=== PATIENT | male | born 1945 | race Caucasian/White ===

== ENCOUNTER → 2017-02-06 | Outpatient (CLI) | payer OTHER, MEDICARE | LOC: FIMAGING 09:54 | PROVIDERS: ATTEND Family Medicine Geriatric Medicine | DX: K80.20 Calculus of gallbladder without cholecystitis without obstruction (principal); K76.0 Fatty (change of) liver, not elsewhere classified; N28.1 Cyst of kidney, acquired ==

== ENCOUNTER → 2017-04-08 | Outpatient (CLI) | payer OTHER, MEDICARE ==
[~2017-04-08] MED LIST: IOPAMIDOL (ISOVUE-300) 100 ML BTL ONE
== END ==
LOC: FIMAGING 10:46
PROVIDERS: ATTEND Physician Assistant
DX: K76.0 Fatty (change of) liver, not elsewhere classified (principal); N28.1 Cyst of kidney, acquired; K57.33 Diverticulitis of large intestine without perforation or abscess with bleeding
CPT/HCPCS: 74177; Q9967

== ENCOUNTER 2017-04-11 14:03 | Emergency (ER) | payer OTHER, MEDICARE ==
[2017-04-11 14:13] VITALS: RESP 18
--- NOTE | 2017-04-11 15:08 | EDPHY ---
H & P Time Seen by Provider: 04/11/17 14:59 HPI/ROS: CHIEF COMPLAINT: Myalgias HISTORY OF PRESENT ILLNESS: This patient is a 71-year-old male who presents to the Emergency Department complaining of diffuse myalgias increasing in severity over the past two days. He was recently started on Flagyl and Bactrim for diverticulitis; he finished day 9 of these medications yesterday and decided to stop these concerned that he may be having a reaction to the medications. Upon arrival, he describes his pain as similar to the muscle aching side effects of his statin medications. His pain as most severe to his buttocks and back, exacerbated when attempting to sit down. He also complains of a non-pruritic rash to his upper back and arms. He states that his abdominal pain has subsided. Denies fever or chills; he has no additional complaints. REVIEW OF SYSTEMS: Constitutional: +diffuse myalgias, no fever, no chills Eyes: No visual changes ENT: No sore throat Respiratory: No cough, no shortness of breath Cardiac: No chest pain Gastrointestinal: No nausea, no vomiting Genitourinary: No hematuria, no dysuria Musculoskeletal: No leg pain or swelling Skin: +hives to back and arms Neurological: No headache, no numbness, no weakness Psychiatric: No depression Past Medical/Surgical History: Diverticulitis Social History: Former smoker Smoking Status: Former smoker Physical Exam: General Appearance: Alert, pleasant Eyes: Pupils equal and round, no conjunctival pallor or injection ENT, Mouth: Mucous membranes moist Neck: Normal inspection Respiratory: Lungs are clear to auscultation Cardiovascular: Regular rate and rhythm Gastrointestinal: Abdomen is soft with very mild LLQ tenderness Neurological: A&O, nonfocal, normal gait Skin: Warm and dry, hives to back and bilaterally to both arms Extremities: Nontender, no pedal edema Psychiatric: Mood and affect normal Constitutional: Initial Vital Signs Temperature (C) 36.3 C 04/11/17 14:09 Heart Rate 93 04/11/17 14:09 Respiratory Rate 18 04/11/17 14:09 Blood Pressure 124/90 H 04/11/17 14:09 O2 Sat (%) 97 04/11/17 14:09 O2 Delivery Mode Room Air Allergies/Adverse Reactions: ciprofloxacin [From Cipro] Allergy (Verified 04/11/17 14:14) Penicillins Adverse Reaction (Severe, Verified 10/09/15 09:17) Home Medications: Medication Instructions Recorded Lisinopril 10/09/15 Metformin HCl 10/09/15 Baclofen 04/11/17 Medical Decision Making ED Course/Re-evaluation: This 71-year-old male presents with complaints of diffuse myalgias and a non- pruritic rash to his upper back and bilaterally to his arms presenting two days prior to arrival, on the 7th day of his course of Bactrim and Flagyl prescribed to treat his diverticulitis. He last took these medications yesterday. It is likely he is experiencing an adverse reaction to Bactrim. Will proceed with labs ; r/o rhabdo, given myalgias. 600mg PO Tylenol administered Labs obtained and are largely within normal limits. Creatinine kinase within normal range at 81. CT scan on 04/08 revealed very mild diverticulitis. Based on this, near resolution of sx, and his multiple allergies, I will stop antibiotics altogether at this time. I discussed lab results with the patient. I recommended to him that he treat his urticaria with Benadryl at night and Claritin during the day. He is comfortable with the decision not to begin an additional course of antibiotics. He has completed 9 days of abx. He understands that he should not take any more Flagyl or Bactrim and that his symptoms are likely due to an allergic reaction to the medication. He expresses agreement to this and will be discharged home in good condition. Will f/u PCP in 24-48 hours. Differential Diagnosis: Differential diagnosis for the patient's myalgias and rash includes but is not limited to: allergic reaction to medication, medication side effects, or rhabdomyolysis. - Data Points Laboratory Results: Laboratory Results 04/11/17 15:18 04/11/17 15:18 Medications Given: Discontinued Medications Acetaminophen (Tylenol) 650 mg PO EDNOW ONE Stop: 04/11/17 15:11 Last Admin: 04/11/17 15:36 Dose: 650 mg Departure - Departure Disposition: Home, Routine, Self-Care Clinical Impression: Myalgia, Urticaria Adverse reaction to antibiotic Qualifiers: Encounter type: initial encounter Qualified Code(s): T36.95XA - Adverse effect of unspecified systemic antibiotic, initial encounter Condition: Good Instructions: Urticaria (ED), Musculoskeletal Pain (ED) Additional Instructions: 1. Stop taking Bactrim and Flagyl immediately. 2. Take Benadryl as directed at night and Claritin as directed during the day until your rash subsides. 3. Take 600mg Tylenol every 4-6 hours to treat your muscle aches and muscle cramping. 4. Follow-up with your primary care provider for reevaluation if your symptoms do not improve in 2-3 days. 5. Return to the Emergency Department with worsening pain, worsening rash, difficulty breathing or swallowing, or for other serious concerns. Referrals: Bertha Johnson MD [Primary Care Provider] - 1-2 days without fail Report Scribed for: Mariela Wilder Report Scribed by: Melinda Graham Date of Report: 04/11/17 Time of Report: 15:01 Physician Review and Approval Statement: 04/11/17 15:01 Portions of this note were transcribed by a medical office technologist. I personally performed a history, physical exam, medical decision making, and confirmed accuracy of information the transcribed note.
[2017-04-11] MEDS ORDERED: ACETAMINOPHEN 325 MG TAB PO ONE (15:10)
[2017-04-11 15:34] LABS: % IMMATURE GRANULYOCYTES 0.2 % (0.0-1.1); ABSOLUTE IMMATURE GRANULOCYTES 0.01 10^3/uL (0.00-0.10); ADD DIFF? NO; ADD MORPH? NO; ADD SCAN? YES; FRAGMENT RBC FLAG 0 (0-99); HEMATOCRIT 48.6 % (40.0-51.0); HEMOGLOBIN 16.5 g/dL (13.7-17.5); LEFT SHIFT FLG 0 (0-99); LIPEMIA HEMOLYSIS FLAG 90 (0-99); MEAN CELL HEMOGLOBIN 27.4 pg (27.9-34.1); MEAN CELL VOLUME 80.7 fL (81.5-99.8); MEAN PLATELET VOLUME 10.1 fL (8.7-11.7); PLATELET CLUMPS FLAG 0 (0-99); PLATELET COUNT 336 10^3/uL (150-400); RED BLOOD CELL COUNT 6.02 10^6/uL (4.40-6.38); RED CELL DISTRIBUTION WIDTH 13.4 % (11.5-15.2)
[2017-04-11] MEDS ORDERED: ACETAMINOPHEN 325 MG TAB ONE (15:34)
[2017-04-11 15:37] LABS: ATYPICAL LYMPHOCYTE FLAG 100 (0-99)
[2017-04-11 15:44] LABS: ANION GAP 12 mEq/L (8-16); CALCIUM 9.9 mg/dL (8.5-10.4); CARBON DIOXIDE 23 mEq/l (22-31); CHLORIDE 102 mEq/L (97-110); CREATININE 0.9 mg/dL (0.7-1.3); GLOMERULAR FILTRATION RATE > 60; GLUCOSE 148 mg/dL (70-100); POTASSIUM 4.9 mEq/L (3.5-5.2); SODIUM 137 mEq/L (134-144)
[2017-04-11 15:54] LABS: SCAN POSITIVE
[2017-04-11 15:59] LABS: PLATELET ESTIMATE ADEQUATE (ADEQ)
[2017-04-11 16:52] VITALS: BP 146/85; PULSE 85; TEMP 98.2; O2SAT 94
== END 2017-04-11 16:47 | disposition home or self-care (01) ==
DX: M79.1 Myalgia (principal); L50.9 Urticaria, unspecified; T36.8X5A Adverse effect of other systemic antibiotics, initial encounter; Z87.891 Personal history of nicotine dependence

== ENCOUNTER 2017-04-17 21:50 | Emergency (ER) | payer OTHER, MEDICARE ==
--- NOTE | 2017-04-17 22:31 | EDPHY ---
H & P Stated Complaint: SPLINTER IN L FOOT FOR PAST 1 HR, UNABLE TO GET IT OUT Source: Patient Exam Limitations: No limitations - Personal History Current Tetanus/Diphtheria Vaccine: Yes Current Tetanus Diphtheria and Acellular Pertussis (TDAP): Yes - Medical/Surgical History Hx Asthma: No Hx Chronic Respiratory Disease: No Hx Diabetes: Yes Hx Cardiac Disease: No Hx Renal Disease: No Hx Cirrhosis: No Hx Alcoholism: No Hx HIV/AIDS: No Hx Splenectomy or Spleen Trauma: No Other PMH: HTN. DM. Thoracic outlet syndrome. Carpal Tunnel Syndrome, sleep apnea, GERD, diverticulitis - Social History Smoking Status: Former smoker HPI/ROS: CHIEF COMPLAINT: Foreign body left foot HISTORY OF PRESENT ILLNESS: Patient complains of foreign body in the bottom of his left foot. He was walking in his kitchen barefoot this evening when he felt something sticking him in the bottom of the left foot. This is in the heel pad. Minimally painful. Worse when he puts weight on it. He can feel it , thus he attempted to dig it out with a sewing needle at home. He was unsuccessful and thus he is here. Minimal bleeding. Tetanus is up-to-date. There was no broken glass or any abnormal objects indication that he knows of. Patient is not a diabetic. REVIEW OF SYSTEMS: Ten systems reviewed and are negative unless otherwise noted in the HPI EXAMINATION General Appearance: Alert, no distress Cardiovascular: Pulses normal throughout. Brisk cap refill Neurological: A&O, sensory symmetric, strength symmetric Skin: Warm and dry, no rash. Palpable foreign body in the plantar surface of the left heel. No bleeding. No surrounding erythema or purulence. Extremities: Minimal tenderness over the area of possible foreign body. Range of motion fully intact Psychiatric: Mood and affect normal MDM: 10:20 p.m. Foreign body in the plantar surface of the left heel. Patient is not a diabetic. Pain is tolerable. He has requested that attempt to remove the foreign body. I have anesthetized the area and will attempt brief exploration. 10:50 p.m. I have explored the wound for 20 minutes. I do not palpate any foreign bodies. I did offer an x-ray to the patient he has declined as he feels that is too small. I agree that it is likely to not be helpful but recommended x-ray. He prefers that we not perform one. We will dress the wound. He is to apply bacitracin daily. Follow up with primary care physician or general surgeon next week if the foreign body persist. Return here for any surrounding redness , warmth or signs of infection. ED Precautions: Worsening pain. Erythema, edema, cyanosis, pallor, paresthesia or anesthesia. SUPERVISION: This patient was independently evaluated without direct examination by the attending physician. Case was discussed with attending physician. (Griffin Green) Constitutional: Initial Vital Signs Temperature (C) 37.0 C 04/17/17 21:51 Heart Rate 91 04/17/17 21:51 Respiratory Rate 18 04/17/17 21:51 Blood Pressure 129/77 H 04/17/17 21:51 O2 Sat (%) 95 04/17/17 21:51 O2 Delivery Mode Room Air Allergies/Adverse Reactions: ciprofloxacin [From Cipro] Allergy (Verified 04/17/17 21:56) sulfamethoxazole [From Bactrim] Allergy (Verified 04/17/17 21:56) trimethoprim [From Bactrim] Allergy (Verified 04/17/17 21:56) Penicillins Adverse Reaction (Severe, Verified 04/17/17 21:56) Home Medications: Medication Instructions Recorded Lisinopril 10/09/15 Metformin HCl 10/09/15 Baclofen 04/11/17 Medical Decision Making Other Provider: PHYSICIAN DOCUMENTATION: The patient was evaluated and managed by the Physician Meteorological Engineer. My co- signature indicates that I have reviewed this chart and I agree with the findings and plan of care as documented. I am the secondary supervising physician. (Clara Toro) Departure - Departure Disposition: Home, Routine, Self-Care Clinical Impression: Foreign body (FB) in soft tissue Condition: Good Instructions: Soft Tissue Foreign Body (ED) Additional Instructions: 1. Apply bacitracin once or twice daily. 2. Keep the wound covered with a Band- Aid or larger dressing 3. Do not further explore the wound at home. Return here for any surrounding redness, purulence or increasing pain or warmth 4. Follow up with primary care physician or general surgeon if the symptoms persist next week Referrals: Bertha Johnson MD [Primary Care Provider] - As per Instructions Fred Alfonso MD [Medical Doctor] - As per Instructions
[2017-04-17 23:15] VITALS: BP 131/76; PULSE 88; RESP 16; TEMP 98.2; O2SAT 96
== END 2017-04-17 23:13 | disposition home or self-care (01) ==
DX: S90.852A Superficial foreign body, left foot, initial encounter (principal); E11.9 Type 2 diabetes mellitus without complications; I10 Essential (primary) hypertension; Z87.891 Personal history of nicotine dependence; Z79.84 Long term (current) use of oral hypoglycemic drugs; W45.8XXA Other foreign body or object entering through skin, initial encounter; Y92.190 Kitchen in other specified residential institution as the place of occurrence of the external cause; Y99.8 Other external cause status; Y93.01 Activity, walking, marching and hiking

== ENCOUNTER → 2017-05-18 | Outpatient (CLI) | payer OTHER, MEDICARE | LOC: FIMAGING 09:49 | PROVIDERS: ATTEND Family Medicine Geriatric Medicine | DX: K82.8 Other specified diseases of gallbladder (principal); K80.20 Calculus of gallbladder without cholecystitis without obstruction; K76.0 Fatty (change of) liver, not elsewhere classified | CPT/HCPCS: 76705; 78227; A9537 ==

== ENCOUNTER → 2018-12-14 | Outpatient (CLI) | payer OTHER, MEDICARE | LOC: BHFA 10:00 | PROVIDERS: ATTEND Internal Medicine Cardiovascular Disease | DX: R55 Syncope and collapse (principal) ==